=== PATIENT | female | born 1955 | race Caucasian/White ===

== ENCOUNTER → 2018-07-05 | Outpatient (CLI) | payer MEDICARE ==
--- NOTE | 2018-07-05 15:47 | Diagnostic Imaging Report ---
PATIENT HISTORY: ACUTE LEFT ANKLE PAIN. TECHNIQUE: 3 views of the left ankle. COMPARISON: None FINDINGS: No acute fracture or dislocation is seen in the left ankle. Alignment appears normal. There are advanced degenerative changes at the talonavicular joint and additional degenerative changes elsewhere in the foot and ankle. There are moderate-sized enthesophytes of the posterior and plantar calcaneus. No significant joint effusion is seen. IMPRESSION: No acute osseous abnormality seen in the left ankle. There are degenerative changes present, most pronounced in the talonavicular joint. Dictated by: Dictated on workstation # [id number]
== END ==
LOC: RAD 15:23
PROVIDERS: ATTEND Nurse Practitioner Family
DX: M19.072 Primary osteoarthritis, left ankle and foot (principal)
CPT/HCPCS: 73610

== ENCOUNTER → 2018-08-01 | Outpatient (CLI) | payer MEDICARE ==
--- NOTE | 2018-08-01 16:01 | Diagnostic Imaging Report ---
INDICATION: Low back pain. Time of exam 11:37 a.m. FINDINGS: Three views of the lumbar spine were obtained. Curvature and alignment is normal. Vertebral body heights are maintained. No acute compression fracture is seen. There is some mild degenerative spurring anteriorly at the L3-4 and L4-5 levels. There appears to be multilevel lower lumbar facet arthropathy. Aorta is partially calcified. IMPRESSION: Lumbar spondylosis and facet arthropathy. No acute bony abnormality is detected. Dictated by: Dictated on workstation # [id number]
== END ==
LOC: RAD FS 11:28
PROVIDERS: ATTEND Nurse Practitioner Family
DX: M47.816 Spondylosis without myelopathy or radiculopathy, lumbar region (principal); M46.86 Other specified inflammatory spondylopathies, lumbar region
CPT/HCPCS: 72100

== ENCOUNTER → 2018-09-19 | Outpatient (CLI) | payer MEDICARE ==
--- NOTE | 2018-09-19 15:28 | Diagnostic Imaging Report ---
PROCEDURE: MRI lumbar spine. TECHNIQUE: Multiplanar, multisequence MRI of the lumbar spine was performed without contrast. INDICATION: Low back pain and bilateral hip pain. COMPARISON: No prior studies are available for comparison. FINDINGS: Curvature and alignment of the lumbar spine is normal. Vertebral body heights are maintained. The marrow signal intensity is unremarkable. No geographic marrow lesion or acute compression fracture is seen. There is mild disc desiccation noted compatible with degenerative disc disease. Conus is unremarkable at the L1 level. T12-L1: Central canal is widely patent. Neural foramina are patent. L1-2: There is ligamentous thickening. Central canal is widely patent. No significant neural foraminal narrowing is seen. L2-3: Ligamentous thickening is noted. Central canal is patent. There is mild bilateral neural foraminal narrowing. L3-4: Ligamentous thickening and facet changes with broad-based disc/osteophyte complex does result in moderate trefoil stenosis to the central canal. There is also significant bilateral lateral recess stenosis as well as moderate bilateral neural foraminal stenosis. L4-5: Hypertrophic facet changes with ligamentous thickening and broad-based disc/osteophyte complex results in significant trefoil stenosis to the central canal. There is also significant bilateral lateral recess stenosis and bilateral neural foraminal stenosis. L5-S1: Broad-based disc bulging indents the ventral thecal sac. No significant central canal narrowing is seen. There is moderate bilateral lateral recess narrowing as well as moderate bilateral neural foraminal stenosis. Paraspinous tissues are unremarkable. IMPRESSION: Lumbar spondylosis with multilevel central canal, lateral recess and neural foraminal stenosis described level by level above. No acute compression fracture is seen. Dictated by: Dictated on workstation # [id number]
== END ==
LOC: RAD 14:16
PROVIDERS: ATTEND Nurse Practitioner Family
DX: M51.27 Other intervertebral disc displacement, lumbosacral region (principal); M48.07 Spinal stenosis, lumbosacral region; M47.816 Spondylosis without myelopathy or radiculopathy, lumbar region; M51.36 Other intervertebral disc degeneration, lumbar region; M43.06 Spondylolysis, lumbar region
CPT/HCPCS: 72148

== ENCOUNTER → 2020-08-06 | Outpatient (CLI) | payer MEDICARE, OTHER ==
[2020-08-06 09:22] LABS: BASOPHILS % (AUTO) 1 % (0-10); EOSINOPHILS % (AUTO) 5 % (0-10); HEMATOCRIT 40 % (35-52); HEMOGLOBIN 13.4 G/DL (11.5-16.0); LYMPHOCYTES % (AUTO) 25 % (12-44); MEAN CORPUSCULAR HEMOGLOBIN 29 PG (25-34); MEAN CORPUSCULAR HGB CONC 33 G/DL (32-36); MEAN CORPUSCULAR VOLUME 87 FL (80-99); MEAN PLATELET VOLUME 11.1 FL (7.4-10.4); MONOCYTES % (AUTO) 6 % (0-12); NEUTROPHILS % (AUTO) 63 % (42-75); PLATELET COUNT 288 10^3/uL (130-400); WHITE BLOOD COUNT 13.1 10^3/uL (4.3-11.0)
[2020-08-06 09:23] LABS: BASOPHILS # (AUTO) 0.1 10^3/uL (0.0-0.1); EOSINOPHILS # (AUTO) 0.7 10^3/uL (0.0-0.3); LYMPHOCYTES # (AUTO) 3.3 X 10^3 (1.0-4.0); MONOCYTES # (AUTO) 0.8 X 10^3 (0.0-1.0); NEUTROPHILS # (AUTO) 8.2 X 10^3 (1.8-7.8)
[2020-08-06 10:07] LABS: BUN/CREATININE RATIO 18; CARBON DIOXIDE 24 MMOL/L (21-32); CHLORIDE 105 MMOL/L (98-107); CREATININE SERUM 0.67 MG/DL (0.60-1.30); GFR ESTIMATED > 60; POTASSIUM 4.3 MMOL/L (3.6-5.0); SODIUM 141 MMOL/L (135-145)
[2020-08-06 10:08] LABS: ALANINE AMINOTRANSFERASE 24 U/L (0-55); ALBUMIN 4.2 GM/DL (3.2-4.5); ALKALINE PHOSPHATASE 81 U/L (40-136); BILIRUBIN,TOTAL 0.3 MG/DL (0.1-1.0); CALCIUM 9.3 MG/DL (8.5-10.1); GLUCOSE 111 MG/DL (70-105); TOTAL PROTEIN 7.2 GM/DL (6.4-8.2)
[2020-08-06 15:17] LABS: CHOLESTEROL 193 MG/DL (< 200); HDL CHOLESTEROL 42 MG/DL (40-60); TRIGLYCERIDES 138 MG/DL (<150); VLDL CHOLESTEROL 28 MG/DL (5-40)
[2020-08-06 15:39] LABS: FREE T4 (FREE THYROXINE) 0.81 NG/DL (0.70-1.48)
== END ==
LOC: LAB FS 08:59
PROVIDERS: ATTEND Nurse Practitioner Family
DX: E11.8 Type 2 diabetes mellitus with unspecified complications (principal); E78.2 Mixed hyperlipidemia; F41.9 Anxiety disorder, unspecified
CPT/HCPCS: 36415; 80053; 80061; 83036; 84439; 84443; 85025

== ENCOUNTER → 2020-08-11 | Outpatient (CLI) | payer MEDICARE, OTHER ==
--- NOTE | 2020-08-11 12:55 | Diagnostic Imaging Report ---
EXAMINATION: Lumbar spine at 12:42 PM. INDICATION: Back pain. TECHNIQUE: Five views were obtained. FINDINGS: The lateral view shows the vertebral body heights and alignment to be within normal limits and similar to the prior exam of 08/04/2018. There is mild narrowing of the disc space at L5-S1 and at L4-L5. There has been some loss of height of the discs at the L4-L5 and L5-S1 levels since the prior study. The other intervertebral spaces are fairly well maintained. The oblique view fails to show any sign of a pars defect. There is no fracture or acute bony abnormality appreciated. There is no sign of a paraspinal mass. The sacroiliac joints are symmetrical and within normal limits. IMPRESSION: 1. There is no evidence for an acute bony abnormality. 2. The degenerative disc disease at L4-L5 and L5-S1 seen previously has progressed slightly since the prior study. 3. If there is clinical concern regarding spinal stenosis or nerve root encroachment, then MRI would be recommended for additional study. Dictated by: Dictated on workstation # [id number]
== END ==
LOC: RAD FS 12:30
PROVIDERS: ATTEND Nurse Practitioner Family
DX: M51.17 Intervertebral disc disorders with radiculopathy, lumbosacral region (principal); R15.9 Full incontinence of feces
CPT/HCPCS: 72110

== ENCOUNTER → 2021-08-26 | Outpatient (CLI) | payer MEDICARE, MEDICAID ==
--- NOTE | 2021-08-26 12:50 | Diagnostic Imaging Report ---
Indication: Low back pain. Time of Exam: 11:25 AM 3 views of the lumbar spine were obtained. Curvature and alignment is normal. Vertebral body heights and disc spaces are fairly well maintained apart from mild disc space narrowing L1-2 and L2-L3 levels. There are postoperative changes from posterior instrumented fusion with vertical stabilization rods and pedicle screws transfixing L4-L5 level. Intervertebral spacers noted at L4-L5. Hardware appears to be intact. Vertebral body heights are maintained. No acute compression fracture is seen. There are atherosclerotic calcifications in the abdominal aorta. Impression: Lumbar spondylosis and postop changes. No acute bony abnormality is detected. Dictated by: Dictated on workstation # [id number]
== END ==
LOC: RAD FS 11:13
PROVIDERS: ATTEND Chiropractor
DX: M47.816 Spondylosis without myelopathy or radiculopathy, lumbar region (principal)
CPT/HCPCS: 72100

== ENCOUNTER 2022-04-27 09:00 | Emergency (ER) | payer MEDICARE, MEDICAID ==
[~2022-04-27] VITALS: Ht 160 cm; Wt 80.0 kg
[2022-04-27 09:10] VITALS: BP 130/71
--- NOTE | 2022-04-27 09:17 | ED Head Injury ---
General Chief Complaint: Head/Cervical Problems Stated Complaint: HEAD INJ Nursing Triage Note: Patient has presented to ER with cc of a bump on her head. She reports that she rolled out of her bed while asleep at about 0700 this morning. She bumped her head on maybe the night stand or the edge of the bed. She reports a minor headache but she has not taken anything for the pain. Her dautgher wanted her to get checked out so she went to urgent care and was sent to ER for evaluation. Source: patient History of Present Illness Date Seen by Provider: Apr 27, 2022 Time Seen by Provider: 09:04 Initial Comments 66-year-old female presenting by private vehicle to the emergency department out of family's concern for her hitting her head. She states that around 7 AM this morning she was dreaming that she was getting up out of bed and the next thing she knew she was rolling out of bed and hit the left side of her head on the nightstand or the bed frame. She denies losing consciousness and actually it woke her up. She has some mild pain to the left side of her head and scalp where she had hit it. She reports mild nausea but was unsure if that was because she has not had breakfast yet. She denies having any vomiting, change in vision, blood or fluid draining from her ears or nose. She has no new weakness or numbness in her arms or legs. She denies any other injuries from the fall. She denies taking any blood thinners. Her children wanted her evaluated to make sure that everything looked okay. She has tried to go to urgent care and they told her she had to go up to the emergency department. Occurred: this morning Severity: mild Location: temporal, parietal Method of Injury: direct blow (rolled out of bed) Loss of Consciousness: no loss of consciousness Associated Systoms: No Chest Pain, No Cough, No Diaphoresis, No Fever/Chills; H eadaches (mild headache); No Loss of Appetite, No Malaise, No Rash, No Seizure, No Shortness of Air, No Syncope, No Weakness Allergies and Home Medications Allergies Coded Allergies: Sulfa (Sulfonamide Antibiotics) (Verified Allergy, Unknown, 04/27/22) Patient Home Medication List Home Medication List Reviewed: Yes Review of Systems Review of Systems Constitutional: No chills, No dizziness, No fever Eyes: See HPI; Denies Blurred Vision, Denies Photophobia, Denies Vision Changes Ears, Nose, Mouth, Throat: denies ear pain, denies ear discharge, denies nose pain, denies nose discharge, denies epistaxis Respiratory: No cough, No short of breath Cardiovascular: No chest pain Gastrointestinal: see HPI, nausea; No vomiting Genitourinary: no symptoms reported Musculoskeletal: no symptoms reported Skin: other (contusion with mild swelling and bruising to left frontoparietal area.) Psychiatric/Neurological: See HPI; Denies Numbness, Denies Weakness Past [id number]-[id number] Hx Patient Social History Tobacco Use?: No Tobacco type used: Cigarettes Substance use?: Yes Substance type: Marijuana Substance frequency: Several times a month Alcohol Use?: No Past Medical History Surgery/Hospitalization HX: Hypertension Physical Exam Vital Signs Vital Signs - First Documented 04/27/22 09:10 Temp 35.6 Pulse 107 Resp 16 B/P (MAP) 130/71 (90) Pulse Ox 98 O2 Delivery Room Air Capillary Refill : Height, Weight, BMI Height: '" Weight: lbs. oz. kg; 31.00 BMI Method: General Appearance: WD/WN, no apparent distress HEENT: PERRL/EOMI, normal ENT inspection, TMs normal, pharynx normal; No photophobia; other (Negative lyons sign, negative raccoon sign, no CSF otorrhea, no CSF rhinorrhea. There is mild contusion with bruising to the left frontal parietal area. There is no crepitus or step-off) Neck: non-tender, full range of motion, supple, normal inspection Cardiovascular: normal peripheral pulses, regular rate, rhythm Respiratory: chest non-tender, lungs clear, normal breath sounds Extremities: normal range of motion, non-tender, normal capillary refill Psychiatric: alert, oriented x 3 Crainal Nerves: normal hearing, normal speech, PERRL Coordination/Gait: normal gait Motor/Sensory: no motor deficit, no sensory deficit Skin: warm/dry, ecchymosis (Mild bruising to the left frontoparietal area where she has a scalp contusion) Sulema Coma Score Best Eye Response: (4) Open Spontaneously Best Verbal Response: (5) Oriented Best Motor Response: (6) Obeys Commands Pierce Total: 15 Progress/Results/Core Measures Results/Orders Vital Signs/I&O 04/27/22 09:10 Temp 35.6 Pulse 107 Resp 16 B/P (MAP) 130/71 (90) Pulse Ox 98 O2 Delivery Room Air Blood Pressure Mean: 90 Progress Progress Note : Progress Note Potential diagnosis of scalp contusion, minor head injury without loss of consciousness, intracranial hemorrhage, skull fracture. Reassured patient that with her not taking any blood thinners and having no loss of consciousness, change in her vision, change in her pupil size, drainage or fluid coming from her nose or ears, no bruising to indicate a skull fracture, that she will have a mild headache and may notice some bruising in her discoloration to the left side of her scalp and face but no signs of a skull fracture or bleeding in her brain. At this point she would not meet criteria for having a CT scan of her head done as she was not having symptoms that would indicate that needed to be done. Per CDC recommendations on Mild TBI Clinical policty she would not meet criteria for CT head imaging. She was reassured about her physical findings and symptoms. Encouraged to follow-up with clinic as needed. Counseled on follow-up and return precautions of change in vision, change in mentation, trouble staying awake, repeated episodes of vomiting, change in her pupils, worsening headache that was not improving as reasons that she would need to be reevaluated. Otherwise continue with symptomatic care of acetaminophen to help with headache. May also use ice pack to help with bruising and swelling. Encouraged to check back with primary for continued concerns. Departure Impression Primary Impression: Closed head injury without loss of consciousness Qualified Codes: S09.90XA - Unspecified injury of head, initial encounter Additional Impression: Contusion of left temporofrontal scalp Qualified Codes: S00.03XA - Contusion of scalp, initial encounter Disposition: 01 HOME, SELF-CARE Condition: Stable Departure-Patient Inst. Decision time for Depature: 09:15 Referrals: BRITTANY OATES APRN (PCP) Primary Care Physician [facility] (Family) Primary Care Physician Patient Instructions: Minor Head Injury, Adult ED Add. Discharge Instructions: May take acetaminophen or Tylenol for pain. You may also use ice pack if needed to help with pain. Return to be seen again if you are having repeated episodes of vomiting, trouble staying awake, blood coming from your ears or nose. All discharge instructions reviewed with patient and/or family. Voiced understanding. GILBERTO DE PAZ MD Apr 27, 2022 09:17
== END 2022-04-27 09:20 | disposition home or self-care (01) ==
LOC: EDUNIT# 09:00 → ER FS 09:02
DX: S09.90XA Unspecified injury of head, initial encounter (principal); S00.03XA Contusion of scalp, initial encounter; F17.210 Nicotine dependence, cigarettes, uncomplicated; Z28.310 Unvaccinated for COVID-19; W06.XXXA Fall from bed, initial encounter; W22.8XXA Striking against or struck by other objects, initial encounter
CPT/HCPCS: 99281